=== PATIENT | female | born 2000 | race Caucasian/White ===

== ENCOUNTER 2025-01-31 17:08 | Emergency (ER) | payer BC, SELFPAY ==
[2025-01-31 17:14] VITALS: BP 119/74
--- NOTE | 2025-01-31 18:03 | ED.GENMED ---
History of Present Illness
General
Chief Complaint: Musculo-Skeletal Complaint
Source: patient
Exam Limitations: none
Time Seen by Provider: 01/31/25 17:20
Nursing documentation reviewed up to this point in time: agreed with
History of Present Illness
History of Present Illness:
24-year-old female Presenting to the emergency department today with concerns of left-sided ankle discomfort. Injured ankle 2 days ago was seen in urgent care was told she has a sprain was given an Aircast and otherwise has had worsening symptoms
and swelling since. Denies numbness weakness
Review of Systems
Review of Systems
Allergies reviewed?: Yes
All Other Systems: ROS reviewed and negative except as documented in HPI and ROS
Phy Exam
Physical Exam
Physical Exam:
GENERAL: Alert , in no apparent distress
EYE: pupils equal and reactive
NECK: Supple, no significant adenopathy.
ENT: o/p clr, mmm.
CARDIAC: Regular rate and rhythm .
LUNGS: Clear breath sounds bilaterally, no acute respiratory distress, no wheezes/rales/rhonchi
ABDOMEN: Soft, without focal tenderness, no r/g, no cvat
NEUROLOGICAL: Alert and oriented, no focal neuro deficits
SKIN: Warm and dry, skin intact.
MUSCULOSKELETAL: Moderate swelling surrounding the left ankle tenderness mainly to the lateral malleolus, well perfused.
PSYCH: Normal and appropriate interaction.
Course
Orders/Labs/Results
Orders:
Orders
01/31/25 17:43
Ankle, left 3 view CR [CR Ankle - Left Min 3 Views ] Urgent
Comment:
Reason For Exam: left ankle pain
01/31/25 18:39
boot [Ortho Boot Left- Treatment] ONCE
Short or tall?: Tall
Vital Signs
Initial and Last Documented VS:
Initial Vital Signs
Temp Pulse Resp BP Pulse Ox
98.0 F 76 16 119/74 99
01/31/25 17:14 01/31/25 17:14 01/31/25 17:14 01/31/25 17:14 01/31/25 17:14
Last Documented Vital Signs
Temp Pulse Resp BP Pulse Ox
98.0 F 76 16 119/74 99
01/31/25 17:14 01/31/25 17:14 01/31/25 17:14 01/31/25 17:14 01/31/25 17:14
MDM/Problems Addressed
MDM/Problems Addressed:
24-year-old female presenting to the emergency department today with concerns of ongoing left-sided ankle discomfort. Diagnosed with an ankle sprain 2 days ago at urgent care after twisting her ankle. Pain is worsening today. Denies any chest
pain shortness of breath no history of blood clots. X-ray here without emergent findings. Patient with likely ongoing sprain symptoms given a boot otherwise will follow-up with orthopedics.
*Critical Care Note
Total Time (30-74mins, 75-104mins- exclusive of procedures): Not Applicable
ED Attending Note
-
Portions of this chart may have been created with voice recognition software.� Occasional wrong word or��sound alike� substitutions may have occurred due to the inherent limitations of voice recognition software.
Discharge Plan
Departure
Patient Disposition: Home (Routine Discharge)
Date of Disposition: 01/31/25
Time of Disposition: 18:45
Patient with high blood pressure during this ER visit?: No
Condition: Good
Covid-19: Not Applicable
Discharge Problem:
Ankle sprain
Instructions: Sprain (DC)
Referrals:
Aman Milligan MD [Active] - Follow up in 1 week
Lashonda Abbott MD [Family Provider] -
Activity Restrictions/Additional Instructions:
You came to the emergency department today with concerns of ongoing swelling discomfort to your left ankle. Here your x-ray did not show fracture. Please use the boot elevate ice and otherwise follow-up with orthopedics as needed. Return for any
worsening, new or concerning symptoms.
Interventions
Interventions:
*Risk Screen - Suicide Last Done: 01/31/25 17:14
*General Assessment Last Done: 01/31/25 17:14
*Neglect/Abuse Screening Last Done: 01/31/25 17:14
*ED COVID-19 Vaccine History Last Done: 01/31/25 17:14
Discharge Date and Time
Print Language: BULGARIAN
[2025-01-31 19:15] VITALS: BP 106/70
== END 2025-01-31 19:15 | disposition home or self-care (01) ==
LOC: EMR 17:08
PROVIDERS: EMERGENCY PHYSICIAN Emergency Medicine; FAMILY PHYSICIAN Family Medicine
DX: S93.402A Sprain of unspecified ligament of left ankle, initial encounter (principal); X50.1XXA Overexertion from prolonged static or awkward postures, initial encounter
CPT/HCPCS: 99283; 29515; 73610